=== PATIENT | male | born 1990 | race Caucasian/White ===

== ENCOUNTER 2017-06-12 14:25 | Emergency (ER) | payer OTHER ==
--- NOTE | ~2017-06-12 | CR142 ---
[facility] A Service [facility] RADIOLOGY TEXT RESULTS PATIENT: DIANE CARMONA LOCATION: SED : [birth year] UNIT #: [id number] AGE: [address]: Tai Plunkett PAC SEX: M ORDER DR: [id number] [place] [id number] E MR#: [id number] Acc #: [id number] NAME: DIANE CARMONA : 1990 SEX: M STUDY DATE/TIME: 06/12/2017 14:45 UNIT: SED ROOM: STUDY DESCRIPTION: CR Hand Min 3 Views Rt Attending Physician: Tai Plunkett P.A.-C. Ordering Physician: Tai Plunkett P.A.-C. Primary Care Physician: To Cormier Aprn MEDICAL IMAGING REPORT This report is preliminary unless electronic signature is present. EXAM 3 views right hand. DATE 06/12/2017 HISTORY 26-year-old male with right index finger infection and pain which began 4 days ago. COMPARISON None. FINDINGS No retained radiopaque foreign body is seen in the soft tissues. No subcutaneous gas is identified. No acute osseous abnormality. No periostitis or evidence of osteomyelitis. IMPRESSION Normal 3 views of the right hand. Dictated by... Esther Willett M.D. THIS IS AN ELECTRONICALLY VERIFIED REPORT Esther Willett M.D. at 06/13/2017 8:43 AM ELIA/peyman TD: 06/12/2017 19:25 JOB #: [id number] MEDICAL IMAGING REPORT [facility] A Service [facility] RADIOLOGY TEXT RESULTS PATIENT: DIANE CARMONA LOCATION: SED : [birth year] UNIT #: [id number] AGE: [address]: Tai Plunkett PAC SEX: M ORDER DR: Page 1 of 1
[~2017-06-12 14:25] MED LIST: AUGMENTIN PO; BACTRIM DS TABL1 TA1 PO; BENZONATATE PO; CILOXAN5 ML OP; DICLOXAXILLIN250 MG PO; ELIMITE60 GM TOP; FLONASE16 GM; GLUCOPHAGE500 MG PO; INDOMETHACIN25 MG PO; KEFLEX500 M1 PO; KEFLEX500 MG PO; NORCO 5/325 TAB1 TAB PO; PHENERGAN PO; PROAIR HFA8.5 GM INH; VIBRAMYCIN100 M1 DOB; VICODIN ES 7.51 EACH PO; VOLTAREN75 MG PO; ZITHROMAX PO; ZYRTEC10 M2 PO
[2017-06-12] MEDS ORDERED: GRALISE1 EACH (14:34)
[2017-06-12] MEDS ORDERED: MOBIC (14:34)
[2017-06-12] MEDS ORDERED: ZOLOFT (14:34)
[2017-06-12] MEDS ORDERED: FLEXERIL10 MG (14:35)
[2017-06-12] MEDS ORDERED: ZESTORETIC 20-1 EAC1 (14:35)
[2017-06-12] MEDS ORDERED: LIPITOR20 MG (14:35)
[2017-06-12] MEDS ORDERED: INVOKANA300 MG (14:35)
[2017-06-12] MEDS ORDERED: METFORMIN (14:35)
== END 2017-06-12 15:47 | disposition home or self-care (01) ==
LOC: SED 14:25
DX: S60.410A Abrasion of right index finger, initial encounter (principal); I10 Essential (primary) hypertension; E11.9 Type 2 diabetes mellitus without complications; E78.00 Pure hypercholesterolemia, unspecified; F17.200 Nicotine dependence, unspecified, uncomplicated; W22.8XXA Striking against or struck by other objects, initial encounter; Z23 Encounter for immunization
CPT/HCPCS: 29130; 73130; 82947; 90471; 90715; 99284

== ENCOUNTER 2017-06-21 16:56 | Emergency (ER) | payer OTHER ==
[~2017-06-21 16:56] MED LIST changes: +FLEXERIL10 MG; +GRALISE1 EACH; +INVOKANA300 MG; +LIPITOR20 MG; +METFORMIN; +MOBIC; +ZESTORETIC 20-1 EAC1; +ZOLOFT
== END 2017-06-21 18:00 | disposition home or self-care (01) ==
LOC: SED 16:56
DX: B37.49 Other urogenital candidiasis (principal); E11.9 Type 2 diabetes mellitus without complications; I10 Essential (primary) hypertension; E07.9 Disorder of thyroid, unspecified; F17.210 Nicotine dependence, cigarettes, uncomplicated
CPT/HCPCS: 99282

== ENCOUNTER 2017-07-04 15:37 | Emergency (ER) | payer OTHER ==
[~2017-07-04] VITALS: Ht 188 cm; Wt 108.9 kg
--- NOTE | ~2017-07-04 | CT71 ---
[facility] A Service of [facility] & [facility] RADIOLOGY TEXT RESULTS PATIENT: DIANE CARMONA LOCATION: CFTX : 86 UNIT #: [id number] AGE: [address]: Ines Amador SEX: M ORDER DR: [id number] [facility] [address] [place], [place] [address] [id number] MR#: [id number] Acc #: [id number] NAME: DIANE CARMONA : 1990 SEX: M STUDY DATE/TIME: 07/04/2017 16:44 UNIT: CFTX ROOM: STUDY DESCRIPTION: CT Head Wo Contrast Attending Physician: Ines Amador Pa-C Referring Physician: To Cormier Aprn Ordering Physician: Ed Doctor [id number] [facility] Primary Care Physician: To Cormier Aprn MEDICAL IMAGING REPORT This report is preliminary unless electronic signature is present EXAM CT head 07/04/2017 HISTORY Migraine headache, nausea times today. Pain top of head. History of hypertension, diabetes. FINDINGS CT head performed skull base through vertex without intravenous contrast. No prior studies for comparison. This CT examination was performed with one or more of the following radiation dose reduction techniques: automatic exposure control, adjustment of mA and/or kV according to patient size, and iterative reconstruction. Brainstem unremarkable. Cerebellum and cerebral hemispheres show normal zavala matter-white matter differentiation. No hemorrhage. There is no evidence of acute cortical ischemia. The midline structures are nondisplaced. The basal ganglia are intact. The ventricles, cisterns and sulci are normal in size and contour. No intra- or extraaxial mass effect or abnormal intracranial fluid collection. Intraorbital soft tissues unremarkable. The visualized paranasal sinuses and mastoid air cells show mucosal thickening in ethmoid air cells. No air-fluid level to suggest acute sinusitis. There is no acute bony abnormality. IMPRESSION 1. The brain appears normal. If the patient has ongoing neurologic symptoms, consider follow up imaging. 2. Mucosal thickening in the ethmoid air cells. Correlate clinically. No air-fluid levels to suggest acute sinusitis. [facility] A Service of [facility] & [facility] RADIOLOGY TEXT RESULTS PATIENT: DIANE CARMONA LOCATION: [facility] : [birth year] UNIT #: [id number] AGE: [address]: Ines Amador SEX: M ORDER DR: Dictated by... Kulwant Last M.D. THIS IS AN ELECTRONICALLY VERIFIED REPORT Kulwant Last M.D. at 07/05/2017 7:30 PM ISSCA/sayda TD: 07/05/2017 08:32 JOB #: [id number] MEDICAL IMAGING REPORT Page 1 of 1 COPY
== END 2017-07-04 18:00 | disposition home or self-care (01) ==
LOC: CFTX 15:37 → CED 15:37 → CFTX 17:25
DX: J32.9 Chronic sinusitis, unspecified (principal); Z79.899 Other long term (current) drug therapy
CPT/HCPCS: 70450; 82947; 99284